=== PATIENT | female | born 1970 | race Caucasian/White ===

== ENCOUNTER 2018-01-09 12:13 | Emergency (ER) | payer BC, OTHER ==
[~2018-01-09] VITALS: Ht 170.2 cm; Wt 132.4 kg
[~2018-01-09 12:13] MED LIST: FERR1TAB5 PO; GABA300C10 PO; HYDR12.56 PO; LEV100T PO; METO50TA7 PO; NORETAB21 PO; TOPI25TA32 PO
[2018-01-09 12:23] VITALS: BP 159/89
[2018-01-09] MEDS ORDERED: KETOROLAC TROMETH 30 MG/ML 1ML VIAL IV ONE (12:45)
== END 2018-01-09 15:00 | disposition left against medical advice (07) ==
LOC: EDBD 12:13 → ER 12:13
DX: S20.219A Contusion of unspecified front wall of thorax, initial encounter (principal); V49.49XA Driver injured in collision with other motor vehicles in traffic accident, initial encounter; Y93.89 Activity, other specified; Y99.8 Other external cause status; Y92.410 Unspecified street and highway as the place of occurrence of the external cause; I10 Essential (primary) hypertension; E07.89 Other specified disorders of thyroid; M19.90 Unspecified osteoarthritis, unspecified site; Z90.49 Acquired absence of other specified parts of digestive tract; Z90.89 Acquired absence of other organs; Z79.899 Other long term (current) drug therapy
CPT/HCPCS: 71045

== ENCOUNTER 2024-03-11 17:32 | Emergency (ER) | payer OTHER ==
[~2024-03-11] VITALS: Ht 170.2 cm; Wt 110.0 kg
[~2024-03-11 17:32] MED LIST changes: -FERR1TAB5 PO; +FERR45TA7 PO; +GABA-1250 PO; -GABA300C10 PO; -HYDR12.56 PO; +HYDR12.59 PO; +METO-6 PO; -METO50TA7 PO; +NORE-79 PO; -NORETAB21 PO; -TOPI25TA32 PO; +TOPI25TA43 PO
[2024-03-11 18:21] LABS: Basophils # (auto) 0 10 ^3/uL (0-0.2); Basophils % (auto) 0.2 % (0.0-2.0); Eosinophils # (auto) 0 10 ^3/uL (0-0.8); Eosinophils % (auto) 0.2 % (0.0-7.0); Hematocrit 36.8 % (36.0-46.0); Hemoglobin 11.9 g/dL (12.2-16.2); Lymphocytes # (auto) 1.3 10 ^3/uL (0.4-5.4); Lymphocytes % (auto) 7.6 % (10.0-50.0); Mean Corpuscular Hemoglobin 28.2 pg (28.0-32.0); Mean Corpuscular Hgb Conc. 32.4 g/dL (32.0-36.0); Monocytes # (auto) 0.7 10 ^3/uL (0-1.3); Monocytes % (auto) 4.1 % (0.0-12.0); Neutrophils # (auto) 14.6 10 ^3/uL (1.6-8.6); Neutrophils % (auto) 87.9 % (37.0-80.0); Nucleated Red Blood Cells % 0.1 %; Red Blood Cells 4.23 10^6/uL (4.0-5.20); Red Cell Distribution Width 16.7 % (11.8-14.3); White Blood Cell 16.6 10^3/uL (4.4-10.8)
[2024-03-11 18:40] LABS: Alanine Aminotransferase 25 U/L (7-40); Albumin 3.9 g/dL (3.2-4.8); Alkaline Phosphatase 138 U/L (46-116); Anion Gap 9 (5-15); Aspartate Aminotransferase 31 U/L (13-40); BUN/Creatinine Ratio 17.3 (10.0-20.0); Bilirubin, Total 0.6 mg/dL (0.2-1.0); Blood Urea Nitrogen 24 mg/dL (9-23); Calcium 9.7 mg/dL (8.7-10.4); Carbon Dioxide 22 mmol/L (20-30); Chloride 102 mmol/L (98-107); Glucose 140 mg/dL (74-106); Sodium 133 mmol/L (136-145)
[2024-03-11 18:41] LABS: Total Protein 7.3 g/dL (5.7-8.2)
[2024-03-11] MEDS ORDERED: CALC100023 PO (21:59)
[2024-03-11] MEDS ORDERED: ZOFR4T PO (21:59)
[2024-03-11] MEDS ORDERED: DICY10CA PO (21:59)
[2024-03-11 23:49] VITALS: PULSE 127; RESP 20; O2SAT 98
[2024-03-12] MEDS: MAALOX PLUS or MAALOX 30 ML PO ONE (00:10)
[2024-03-12] MEDS: ACETAMINOPHEN 500 MG TAB PO ONE (00:10)
[2024-03-12] MEDS: LIDOCAINE VISCOUS 2% 15ML UD PO ONE (00:11)
[2024-03-12] MEDS: ONDANSETRON HCL 4 MG/2 ML VIAL IV ONE ×4 (00:18→09:46)
[2024-03-12] MEDS: SODIUM CHLORIDE 0.9% 1,000 ML IVB ONE (00:18)
[2024-03-12] MEDS: MORPHINE SULFATE 4 MG/ML SYR/VIAL IV ONE ×3 (00:19→09:47)
[2024-03-12 02:30] VITALS: PULSE 124; RESP 19; O2SAT 94
[2024-03-12] MEDS: PIPERACILLIN-TAZO 4.5GM 100 ML IV SCH (04:46)
[2024-03-12] MEDS: METOPROLOL TARTRATE 50 MG TAB PO ONE (04:47)
[2024-03-12] MEDS: LORazepam 2MG/ML-1ML VIAL IV ONE (04:47)
[2024-03-12] MEDS ORDERED: metroNIDAZOLE 500MG/100ML 100 ML IV ONE (05:00)
[2024-03-12 05:20] LABS: Lactic Acid w/Reflex 2.3 mmol/L (0.4-2.0)
[2024-03-12] MEDS: SODIUM CHLORIDE 0.9% 1,000 ML IV ONE (06:23)
[2024-03-12] MEDS: HYDROmorphone HCL 2 MG/ML VL/or syr IV ONE (07:21)
[2024-03-12 08:53] VITALS: TEMP 98.8; O2SAT 99
[2024-03-12 09:47] VITALS: BP 117/82; PULSE 94; RESP 18
== END 2024-03-12 10:05 | disposition short-term general hospital (02) ==
LOC: ER 17:32
DX: R10.84 Generalized abdominal pain (principal); I11.0 Hypertensive heart disease with heart failure; I50.9 Heart failure, unspecified; M19.90 Unspecified osteoarthritis, unspecified site; F41.9 Anxiety disorder, unspecified; Z98.890 Other specified postprocedural states; Z79.899 Other long term (current) drug therapy
CPT/HCPCS: 36415; 71045; 74176; 80053; 83605; 83690; 83735; 83880; 84443; 84484; 85025; 87040; 93005; 96361; 96365; 96366; 96375; 96376; 99285; J1170; J2060; J2270; J2405; J2543; J7030